=== PATIENT | male | born 1980 | race American Indian/Alaskan Native ===

== ENCOUNTER 2016-07-24 05:06 | Emergency (ER) | payer OTHER ==
[2016-07-24 05:17] VITALS: TEMP 97.9; O2SAT 97
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
[2016-07-24 07:06] VITALS: BP 129/85; PULSE 68; RESP 16
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
== END 2016-07-24 07:51 | disposition home or self-care (01) ==
LOC: C.ER 05:06
DX: S13.4XXA Sprain of ligaments of cervical spine, initial encounter (principal); V49.49XA Driver injured in collision with other motor vehicles in traffic accident, initial encounter; Y92.410 Unspecified street and highway as the place of occurrence of the external cause